=== PATIENT | female | born 1940 | race Caucasian/White ===

== ENCOUNTER 2017-10-17 06:39 | Day surgery (SDC) | payer MEDICARE ==
[~2017-10-17] VITALS: Ht 154.9 cm; Wt 95.6 kg
[~2017-10-17 06:39] MED LIST: ACET-2743 PO; ALBU1.252 IH; ASPI-555 PO; BRESALTEC IH; CALCIUM PO; ESCI10TA54 PO; GABA-531 PO; LOSA50TA37 PO; OMEP20CA10 PO; SIMV20TA6 PO; TRAV2.5D OD
[2017-10-17 07:33] VITALS: BP 150/87
[2017-10-17] MEDS ORDERED: SODIUM CHLORIDE 0.9% 1000ML 1,000 ML IV ONE (07:58)
[2017-10-17] MEDS ORDERED: FENTANYL CITRATE PF 50 MCG/1 ML 2ML VIAL ONE (08:38)
[2017-10-17 08:50] VITALS: BP 119/68
== END 2017-10-17 09:25 ==
LOC: DAH 06:39
PROVIDERS: ATTEND Internal Medicine Gastroenterology
DX: K22.2 Esophageal obstruction (principal); K21.9 Gastro-esophageal reflux disease without esophagitis; I10 Essential (primary) hypertension; J44.9 Chronic obstructive pulmonary disease, unspecified; M19.90 Unspecified osteoarthritis, unspecified site; Z88.2 Allergy status to sulfonamides
CPT/HCPCS: 43249; 93005; A4606; C1726; J3010; J7030